=== PATIENT | female | born 1960 | race Caucasian/White ===

== ENCOUNTER 2022-09-12 20:18 | Emergency (ER) | payer MEDICAID ==
[~2022-09-12] VITALS: Ht 167.6 cm; Wt 72.7 kg
[2022-09-13 02:30] VITALS: BP 133/78
[2022-09-13] MEDS ORDERED: acetaminophen 325mg tablet PO ONE (02:50)
[2022-09-13] MEDS ORDERED: ibuprofen tablet 400 MG TABLET PO ONE (02:50)
== END 2022-09-13 04:33 | disposition home or self-care (01) ==
LOC: ER 20:21
DX: M13.872 Other specified arthritis, left ankle and foot (principal); M13.871 Other specified arthritis, right ankle and foot; M19.90 Unspecified osteoarthritis, unspecified site
CPT/HCPCS: 99283